=== PATIENT | male | born 1965 | race Caucasian/White ===

== ENCOUNTER → 2017-09-30 | Outpatient (CLI) | payer BC ==
--- NOTE | 2017-10-01 08:21 | RAD ---
EXAM DESCRIPTION: Knee,Left Complete CLINICAL HISTORY: 52 years, Male, EFFUSION LEFT KNEE COMPARISON: None TECHNIQUE: Four views of the right knee FINDINGS: No fracture or dislocation. Bones appear normally mineralized with normal trabecular pattern. Normal appearance of medial and lateral compartments on frontal view. Mild degenerative spurring of the tibial spines and in the intercondylar notch. Lateral view shows normal position of the patella. Irregularity of the inferior patella may be old healed fracture. No suprapatellar knee joint effusion. Normal contour of quadriceps and patellar tendons. Mild lateral patellar tilt without subluxation on patellar sunrise view. Flattened posterior aspect of the talus seen which could be old trauma or degenerative change. Patellofemoral joint appears narrowed especially laterally. IMPRESSION: Degenerative changes as described. Electronically signed by: Zeferino Reaves MD 10/01/2017 8:20 AM CDT
--- NOTE | 2017-10-01 08:23 | RAD ---
EXAM DESCRIPTION: Knee,Right Complete CLINICAL HISTORY: 52 years Male, EFFUSION TECHNIQUE: 4 views of the right knee were performed. COMPARISON: None available. FINDINGS: The visualized bones appear well mineralized. No acute fracture or dislocation. Moderate amount of suprapatellar joint effusion. The soft tissues appear grossly unremarkable. Mild narrowing of the lateral compartment joint space noted on standing view. Lateral tilting of the patella noted on the sunrise view. IMPRESSION: 1. No acute fracture or dislocation. 2. Moderate suprapatellar joint effusion. Mild narrowing of the lateral compartment joint space and lateral tilting of the patella. Electronically signed by: Ammon Ross MD 10/01/2017 8:22 AM CDT
== END ==
LOC: RAD 17:33
PROVIDERS: ATTEND Nurse Practitioner Family
DX: M25.462 Effusion, left knee (principal); R22.9 Localized swelling, mass and lump, unspecified

== ENCOUNTER → 2017-10-01 | Outpatient (CLI) | payer BC ==
--- NOTE | 2017-10-02 08:29 | US ---
EXAM DESCRIPTION: Soft Tissue,Extremity CLINICAL HISTORY: 52 years Male, LOCALIZED SWELLING MASS AND LUMP in the medial upper thigh for approximately 2 years. History of trauma. Nontender. COMPARISON: None. FINDINGS: Limited ultrasound evaluation of the left medial upper thigh demonstrates a 7.6 x 6.7 x 4.6 cm ill-defined area of abnormality predominantly isoechoic with scattered hypoechoic areas and with minimal internal vascularity is of indeterminate etiology. The borders are not well-defined. Further evaluation with cross-sectional imaging especially MRI is recommended. IMPRESSION: 1. 6.7 x 4.6 cm ill-defined area of abnormality in the left medial upper thigh with minimal internal vascularity is of indeterminate etiology. Further evaluation with CT with contrast or MRI with contrast is recommended. Electronically signed by: Ammon Ross MD 10/02/2017 8:28 AM CDT
== END ==
LOC: US 15:10
PROVIDERS: ATTEND Nurse Practitioner Family
DX: M25.462 Effusion, left knee (principal)